=== PATIENT | male | born 1980 | race Caucasian/White ===

== ENCOUNTER → 2019-02-02 | Outpatient (CLI) | payer OTHER ==
--- NOTE | 2019-02-02 13:08 | RAD ---
EXAM: Chest,2 Views CLINICAL HISTORY: PERSONAL HISTORY OF TUBERCULOSIS COMPARISON STUDY: None TECHNICAL: Posteroanterior (PA) and lateral views of the chest were performed. FINDINGS: No consolidations, effusions, or edema. The heart size is not enlarged. IMPRESSION: NORMAL CHEST XRAY. No radiographic evidence of tuberculosis. Electronically signed by: Victorino Gonzales MD 02/02/2019 1:07 PM CDT
== END ==
LOC: RAD 11:15
PROVIDERS: ATTEND Nurse Practitioner Family
DX: Z86.11 Personal history of tuberculosis (principal)